=== PATIENT | female | born 1960 | race Caucasian/White ===

== ENCOUNTER 2024-09-18 07:19 | Day surgery (SDC) | payer MEDICARE ==
--- NOTE | 2024-09-17 07:35 | HP ---
HISTORY AND PHYSICAL HISTORY OF PRESENT ILLNESS: The patient is a 64-year-old who presents with a positive Cologuard. She has no complaints at this time. She sees no blood in her stool. PAST MEDICAL HISTORY: Glaucoma, arthritis, asthma. HOME MEDICATIONS: Albuterol, atenolol, Celebrex, Singulair, gabapentin. ALLERGIES: Codeine, Darvon, Demerol, and ibuprofen. PAST SURGICAL HISTORY: Cataract, knee arthroscopy, hysterectomy. SOCIAL HISTORY: Former smoker. FAMILY HISTORY: Uterine cancer, stroke, diabetes, lymphoma. REVIEW OF SYSTEMS: CONSTITUTIONAL: Denies fever or chills. CHEST: Denies shortness of breath. CARDIOVASCULAR: Denies chest pain. ABDOMEN: Denies abdominal pain. PHYSICAL EXAMINATION: GENERAL: No acute distress. CARDIOVASCULAR: Regular rate and rhythm. RESPIRATORY: Nonlabored. No shortness of breath. ABDOMEN: Soft. ASSESSMENT: Positive Cologuard. PLAN: Colonoscopy with Dr. Clayton Willard. This report was dictated for Dr. Willard by Tisha Landin NP.
[2024-09-18] MEDS ORDERED: Sodium Chloride 0.9% 1000 ML 1,000 ML IV SCH (07:30)
[2024-09-18] MEDS ORDERED: Sodium Chloride 0.9% 1000 ML 1,000 ML ONE (07:33)
[2024-09-18 07:44] VITALS: RESP 18
[2024-09-18 10:39] VITALS: BP 100/64; PULSE 70; TEMP 97.5; O2SAT 93
--- NOTE | 2024-09-19 08:58 | OP ---
SURGERY DATE/TIME: 09/18/2024 [id number] PREOPERATIVE DIAGNOSIS: Positive Cologuard. POSTOPERATIVE DIAGNOSIS: Successful hot polypectomy of two 1 cm polyps, one in the hepatic flexure, one in the distal descending. PROCEDURES: Colonoscopy complete to the cecum. SURGEON: Clayton Willard MD ANESTHESIA: General. COMPLICATIONS: None. CONDITION: Stable. DESCRIPTION OF PROCEDURE AND FINDINGS: Patient was taken to surgery. Anal digital examination was satisfactory. Tone was satisfactory. Scope was introduced. Scope advanced to the cecum. Base of cecum, ileocecal valve, appendiceal orifice satisfactory. In the hepatic flexure, a 1 cm polyp taken with hot biopsy forceps to extinction. In the distal descending, a 1 cm taken with a hot biopsy forceps to extinction. Sigmoid, rectum, anus satisfactory. Patient tolerated the procedure satisfactory. We will place her on a 5-year followup having had positive Cologuard and 2 very reasonable polyps today that appeared grossly benign.
== END 2024-09-18 10:47 | disposition home or self-care (01) ==
LOC: SDC 07:19
PROVIDERS: ATTEND Surgery
DX: D12.4 Benign neoplasm of descending colon (principal); D12.3 Benign neoplasm of transverse colon; R19.5 Other fecal abnormalities; Z83.3 Family history of diabetes mellitus; Z80.8 Family history of malignant neoplasm of other organs or systems
CPT/HCPCS: 82947; 93005